=== PATIENT | male | born 1955 | race Caucasian/White ===

== ENCOUNTER → 2017-01-27 | Outpatient (CLI) | payer OTHER ==
[~2017-01-27] MED LIST: ALBU17AE4 IH; ATOR20TA PO; CARV25TA PO; CHOL10003 PO; CLOP75TA PO; EYE VITAMIN PO; FAMO-136 PO; GUAI400T65 PO; IOHEXOL 300 MG/ML 100ml INJECTION ONE; LISI2.5T2 PO; METH454P4 PO; MULT-806 PO; NIAC500C3; NITR0.4T28 SL; NITR1PAT TD; NORMAL SALINE 100 ML ONE; SALINE FLUSH 10ml SYRINGE ONE; SPIR25TA4 PO; TRAZ-170 PO
--- NOTE | 2017-01-27 08:55 | DI ---
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 Delayed postcontrast images were also performed. Coronal and sagittal 2-dimensional reformats. Automated Exposure Control and Iterative Reconstruction dose reducing techniques were utilized. Contrast: Omnipaque 300 100 mL Findings: The lung bases are clear. The unenhanced contours of the liver are unremarkable. The gallbladder is surgically absent. The spleen, pancreas and adrenal glands are within normal limits. No renal or ureteral stone disease appreciated. Postcontrast images show a stable small cyst arising from the superior pole of the right kidney measuring 1.4 cm in diameter. This has been present dating back to 2008 consistent with a benign etiology. There is a tiny low-attenuation focus in the superior pole of the left kidney with peripheral calcification measuring less than a centimeter in size. No enhancing renal masses or hydronephrosis. No abdominal or pelvic lymphadenopathy. Bladder is grossly normal without enhancing mass. Bladder is decompressed. No free fluid or evidence of a bowel obstruction. Moderate stool in the colon. The appendix is normal. Bone windows show no acute findings. Delayed postcontrast images show normal excretion of contrast by both renal collecting systems. No focal filling defects or masses. Partially opacified urinary bladder is grossly normal. Impression: No acute disease process seen. Stable presumably benign right superior pole renal cyst. .
== END ==
LOC: IMA 07:27
PROVIDERS: ATTEND Internal Medicine Nephrology
DX: N28.1 Cyst of kidney, acquired (principal); E87.6 Hypokalemia; N27.0 Small kidney, unilateral
CPT/HCPCS: 74178; J7050; Q9967